=== PATIENT | male | born 1965 | race Caucasian/White ===

== ENCOUNTER 2022-11-21 09:03 | Outpatient (CLI) | payer OTHER, SELFPAY | END 2022-11-21 09:04 | disposition home or self-care (01) | LOC: LKVREF 09:04 | PROVIDERS: PCP Emergency Medicine; Visit Provider Emergency Medicine | DX: Z00.00 Encounter for general adult medical examination without abnormal findings (principal); E78.1 Pure hyperglyceridemia; R73.01 Impaired fasting glucose; I10 Essential (primary) hypertension; M81.0 Age-related osteoporosis without current pathological fracture; Z12.5 Encounter for screening for malignant neoplasm of prostate | CPT/HCPCS: 80053; 80061; 84153; 84439; 84443 ==

== ENCOUNTER 2023-01-28 18:10 | Outpatient (CLI) | payer OTHER, SELFPAY | END 2023-01-28 18:11 | disposition home or self-care (01) | LOC: LKVREF 18:11 | PROVIDERS: PCP Emergency Medicine; Visit Provider Emergency Medicine | DX: R74.01 Elevation of levels of liver transaminase levels (principal); I10 Essential (primary) hypertension; E78.1 Pure hyperglyceridemia; R79.89 Other specified abnormal findings of blood chemistry | CPT/HCPCS: 80076 ==

== ENCOUNTER 2024-01-29 13:09 | Outpatient (CLI) | payer BC, SELFPAY | END 2024-01-29 13:10 | disposition home or self-care (01) | PROVIDERS: PCP Emergency Medicine; Visit Provider Emergency Medicine | DX: Z00.00 Encounter for general adult medical examination without abnormal findings (principal); E78.1 Pure hyperglyceridemia; I10 Essential (primary) hypertension; R73.01 Impaired fasting glucose; R25.1 Tremor, unspecified; R79.89 Other specified abnormal findings of blood chemistry; Z12.5 Encounter for screening for malignant neoplasm of prostate | CPT/HCPCS: 80053; 80061; 82607; 84443; G0103 ==

== ENCOUNTER 2025-03-08 08:28 | Outpatient (CLI) | payer BC, SELFPAY | END 2025-03-08 08:29 | disposition home or self-care (01) | LOC: NFLDREF 03-11 06:46 | PROVIDERS: Visit Provider Emergency Medicine | DX: Z00.00 Encounter for general adult medical examination without abnormal findings (principal); E78.1 Pure hyperglyceridemia; E87.6 Hypokalemia; I10 Essential (primary) hypertension; R25.1 Tremor, unspecified; R74.01 Elevation of levels of liver transaminase levels; F10.90 Alcohol use, unspecified, uncomplicated; Z80.42 Family history of malignant neoplasm of prostate; Z12.5 Encounter for screening for malignant neoplasm of prostate | CPT/HCPCS: 80053; 80061; G0103 ==